=== PATIENT | female | born 1985 | race Caucasian/White ===

== ENCOUNTER → 2020-06-20 | Outpatient (CLI) | payer OTHER ==
[~2020-06-20] MED LIST: CEFUROXIME500 MG PO; ZITHROMAX500 MG PO
== END ==
LOC: KOH-I 13:48
DX: M54.9 Dorsalgia, unspecified (principal); M54.2 Cervicalgia; M79.631 Pain in right forearm; M51.34 Other intervertebral disc degeneration, thoracic region; M51.36 Other intervertebral disc degeneration, lumbar region
CPT/HCPCS: 72040; 72070; 72100; 73090